=== PATIENT | female | born 1965 | race Caucasian/White ===

== ENCOUNTER 2018-07-28 12:10 | Emergency (ER) | payer BC ==
[~2018-07-28] VITALS: Ht 157.5 cm; Wt 61.0 kg
[2018-07-28 12:14] VITALS: BP 156/72; PULSE 71; RESP 18; Ht 157.5 cm; Wt 61.0 kg
--- NOTE | 2018-07-28 13:30 | ERD ---
ER Documentation Chief Complaint Chief Complaint PELVIC PAIN , LOWER BACK PAIN X 4 DAYS HPI 53-year-old female, presents to the emergency department, complaining of pelvic pain, radiating to the lower back area that started 4 days ago. The pain is dull, intermittent, 4/10. No reported fever, chills, diarrhea or constipation, no urinary symptoms. The patient has been taking Tylenol with adequate control of the pain. ROS All systems reviewed and are negative except as per history of present illness. Medications Home Meds Active Scripts Acetaminophen* (Tylenol*) 325 Mg Tablet, 2 TAB PO Q8 PRN for PAIN AND OR ELEVATED TEMP, #20 TAB Prov:KEMAR MONET MD 07/28/18 Baclofen* (Baclofen*) 10 Mg Tablet, 10 MG PO QHS PRN for MUSCLE SPASMS for 10 Days, #10 TAB Prov:KEMAR MONET MD 07/28/18 Naproxen* (Naprosyn*) 500 Mg Tablet, 500 MG PO BID PRN for PAIN AND/OR INFLAMMATION, #10 TAB Prov:KEMAR MONET MD 07/28/18 Allergies Allergies: Coded Allergies: No Known Allergy (Unverified , 07/28/18) PMhx/Soc Medical and Surgical Hx: pt denies Medical Hx History of Surgery: No Smoking Status: Never smoker FmHx Family History: coronary disease; No diabetes Physical Exam Vitals Vital Signs Date Temp Pulse Resp B/P (MAP) Pulse Ox O2 O2 Flow FiO2 Time Delivery Rate 07/28/18 98.9 71 18 156/72 98 12:14 (100) Physical Exam Patient is in no acute distress, vital signs stable. Alert and fully oriented. EYES: PERRLA, EOMI, Sclera and conjunctiva appear normal. EARS: Canals clear, tympanic membranes WNL THROAT: Normal oropharynx. NECK: Supple, No lymphadenopathy. Full ROM without pain or tenderness. HEART: RRR, no rubs, murmurs, clicks or gallops. LUNGS: Clear to auscultation. ABDOMEN: Soft, non-tender without masses or hepatosplenomegaly. EXTREMITIES: No edema bilaterally. BACK: Normal inspection, no bruises, no rashes, no deformity, decreased range of motion for lateral rotation and flexion. No vertebral tenderness, bilateral lower muscle spasm. NEURO: Cranial nerves grossly intact, no motor or sensory deficit Results 24 hrs Laboratory Tests Test 07/28/18 13:44 07/28/18 13:46 Bedside Urine pH (LAB) 5.5 Bedside Urine Protein (LAB) Negative Bedside Urine Glucose (UA) Negative Bedside Urine Ketones (LAB) Negative Bedside Urine Blood Negative Bedside Urine Nitrite (LAB) Negative Bedside Urine Leukocyte Esterase (L Negative POC Beta HCG, Qualitative NEGATIVE Current Medications Medications Dose Sig/Adamaris Start Time Status Last (Trade) Ordered Route PRN Stop Time Admin Dose Reason Admin Ketorolac 30 mg ONCE STAT 07/28/18 DC 07/28/18 Tromethamine IM 13:35 13:54 (Toradol) 07/28/18 13:47 Patient: KWAME GUPTA : 1965 Age: 53 Sex: F MR #: [id number] DOS: 07/28/18 1335 Ordering MD: KEMAR MONET MD Location: [facility] Room/Bed: PROCEDURE: XR Lumbar Spine. CLINICAL INDICATION: back pain TECHNIQUE: AP, lateral and cone-down lateral view of the lumbar spine were obtained. COMPARISON: No prior studies are available for comparison. FINDINGS: There are mild degenerative changes of the lumbar spine at L5-S1. There is disc space narrowing and associated enthesophytes. There is normal vertebral mineralization. There is mild dextroscoliosis.. No acute fracture is seen. There is no subluxation of vertebral bodies. The posterior elements are unremarkable. The soft tissues appear normal. RPTAT: AA IMPRESSION: Mild degenerative changes of the lumbar spine at L5-S1. Mild dextroscoliosis. Procedures/MDM At the time of discharge, patient nontoxic, ambulating, vital signs stable, no gross neurologic deficit. differential diagnosis include but not limited to: lumbar sprain/strain, sciatica, herniated disk, UTI less likely pyelo, kidney stone. Neurovascular exam grossly intact. no clinical findings suggestive of acute infectious process, no acute deformity, no edema, no rashes. Physical examination and clinical presentation consistent most likely with acute on chronic back pain with sciatica. During the ED course the patient received treatment with Toradol IM presenting overall improvement of the symptoms. Results and clinical impression discussed with the patient who agrees with management. The patient is stable to be treated outpatient and will be discharged home with recommendations and close monitoring The patient was informed that the evaluation in the emergency department has been done to rule out an acute emergency, therefore, chronic conditions like malignancy or autoimmune diseases have not been evaluated; therefore, the patient was instructed to follow up with the primary care provider in the next 48h. If symptoms persist, worsen or new symptoms develop, then patient should return to the ED immediately. Instructions explained and given to patient with acknowledgment and demonstrated understanding. Disclaimer: Inadvertent spelling and grammatical errors are likely due to EHR/dictation software use and do not reflect on the overall quality of patient care. Also, please note that the electronic time recorded on this note does not necessarily reflect the actual time of the patient encounter. Departure Diagnosis: Primary Impression: Acute lumbar back pain Additional Impression: Degenerative disc disease Condition: Stable Additional Instructions: Muchas catalina por [facility] para johnson servicio. Esperamos que en johnson visita a la reuben de emergencia johnson problema medico haya sido solucionado y que se sienta mucho mejor. Para estar seguros que johnson mejoria sigue en proceso, le pedimos el favor de hacer carrie magen de seguimiento medico con johnson doctor primario en los proximos 2-4 sears. Lleve con usted estos documentos y las medicinas recetadas. Si geronimo sintomas empeoran, NO SE ESPERE, por favor regrese a reuben de emergencia INMEDIATAMENTE. En constantino que usted no tenga un mdico de atencin primaria: Llame al mdico o clnica comunitaria de referencia que aparece abajo aniya las horas de consultorio para hacer carrie magen para que le vean. CLINICAS: [facility] [phone] [facility] [phone] [facility] [phone] [facility] [phone] [place] [id number] [phone] [facility] [phone] KEMAR GARY MD July 28, 2018 13:30
[2018-07-28] MEDS ORDERED: KETOROLAC 30 MG INJ IM STA (13:35)
[2018-07-28] MEDS ORDERED: ACET325T33 PO (14:39)
[2018-07-28] MEDS ORDERED: BACL10TA PO (14:39)
[2018-07-28] MEDS ORDERED: NAPR-985 PO (14:39)
== END 2018-07-28 15:10 | disposition home or self-care (01) ==
LOC: FTE 12:10
DX: M51.36 Other intervertebral disc degeneration, lumbar region (principal)
CPT/HCPCS: 72100; 81003; 81025; 96372; 99284; J1885